=== PATIENT | male | born 1960 | race Caucasian/White ===

== ENCOUNTER 2017-02-24 09:00 | Day surgery (SDC) | payer BC, OTHER ==
[2017-02-24 09:16] LABS: HEMATOCRIT 48.4 % (37.9-51.0); HEMOGLOBIN 16.9 g/dL (13.5-17.0); MEAN CORPUSCULAR HEMOGLOBIN 33.3 pg (27.0-33.4); MEAN CORPUSCULAR VOLUME 95 fl (80-97); PLATELET COUNT 166 10^3/uL (150-450); RED BLOOD COUNT 5.08 10^6/uL (4.35-5.55); RED CELL DISTRIBUTION WIDTH 12.6 % (11.5-14.0); WHITE BLOOD COUNT 4.8 10^3/uL (4.0-10.5)
[2017-02-24 09:47] LABS: ALANINE AMINOTRANSFERASE 38 U/L (21-72); ALBUMIN 4.7 g/dL (3.5-5.0); ALKALINE PHOSPHATASE 115 U/L (38-126); ANION GAP 14 (5-19); ASPARTATE AMINO TRANSFERASE 39 U/L (17-59); BILIRUBIN,DIRECT 0.3 mg/dL (0.0-0.4); BILIRUBIN,TOTAL 1.1 mg/dL (0.2-1.3); BLOOD UREA NITROGEN 15 mg/dL (7-20); CARBON DIOXIDE 22 mmol/L (22-30); CHLORIDE 105 mmol/L (98-107); GLUCOSE 103 mg/dL (75-110); POTASSIUM 4.5 mmol/L (3.6-5.0); SODIUM 140.7 mmol/L (137-145); TOTAL PROTEIN 7.5 g/dL (6.3-8.2)
[2017-02-24] MEDS ORDERED: GLYCOPYRROLATE INJ 0.4 MG/2 ML VIAL ONE (10:14)
[2017-02-24] MEDS ORDERED: NALOXONE HCL INJ/PF 0.4 MG/1 ML SDV ONE (10:14)
[2017-02-24] MEDS ORDERED: ONDANSETRON HCL INJ/PF 4 MG/2 ML SDV ONE (10:14)
[2017-02-24] MEDS ORDERED: FLUMAZENIL INJ 0.5 MG/5 ML VIAL ONE (10:15)
[2017-02-24] MEDS ORDERED: GLUCAGON,HUMAN RECOMB 1 MG INJ ONE (10:15)
[2017-02-24] MEDS ORDERED: EPINEPHRINE INJ 1 MG/10 ML DISP.SYRIN ONE (10:15)
[2017-02-24] MEDS: MIDAZOLAM 2 MG/2 ML INJ ONE ×3 (11:27→11:40)
[2017-02-24] MEDS: FENTANYL CITRATE INJ/PF 100 MCG/2 ML AMPUL ONE ×3 (11:29→11:35)
--- NOTE | 2017-02-24 12:18 | Operative Report ---
Operative Report DATE OF SURGERY: 02/24/17 PREOPERATIVE DIAGNOSIS: Blood per rectum. History of colon polyps POSTOPERATIVE DIAGNOSIS: Diverticulosis of the colon. Internal hemorrhoids. OPERATION: Colonoscopy. Anoscopy. SURGEON: MARCI ODOM ANESTHESIA: Moderate Sedation TISSUE REMOVED OR ALTERED: None COMPLICATIONS: None ESTIMATED BLOOD LOSS: None INTRAOPERATIVE FINDINGS: Multiple diverticuli throughout the colon. 3 column internal hemorrhoids prominent but not prolapsing and no stigmata of recent bleeding. PROCEDURE: Informed consent was obtained. Patient was brought to the endoscopy suite. IV sedation with Versed and fentanyl was administered. Digital rectal exam revealed no palpable perianal masses. Endoscope was passed via the patient's anus it was fed to the cecum. The bowel prep was good. Visualization was good. The cecum appeared normal. The right colon, transverse colon, descending colon, and the sigmoid colon were all normal other than multiple large diverticuli throughout the entire colon. The rectum appeared normal. Anoscopy was performed it demonstrated prominent 3 column internal hemorrhoids but no stigmata recent bleeding. He did not have hemorrhoidal prolapse. Patient stated prior to sedation that he did not wish to undergo hemorrhoidal banding unless it was really severe. With the patient's wishes clearly expressed prior to the procedure, I did not perform hemorrhoidal banding. Patient tolerated procedure well with no apparent complications. I will plan to see him back for follow-up in 1-2 weeks. If he changes his mind about the hemorrhoidal banding, I can do this procedure in the office. I do feel that he does have intermittent bleeding due to the hemorrhoids. Recommend repeat colonoscopy in 5 years in light of his history of colon polyps in the past.
--- NOTE | 2017-02-24 12:20 | PDOC DISCHARGE SUMMARY ---
Discharge Summary (SDC) - Discharge Final Diagnosis: Internal hemorrhoids, diverticulosis of the colon. Personal history of colon polyps in the past. Date of Surgery: 02/24/17 Discharge Date: 02/24/17 Condition: Good Treatment or Instructions: Colonoscopy and anoscopy. May discharge patient home when met discharge criteria. Follow-up with me in 2 weeks. Referrals: RISHI DALEY MD [Primary Care Provider] - Discharge Diet: As Tolerated Discharge Activity: Activity As Tolerated Report the Following to Your Physician Immediately: Increase in Pain, Unusual Bleeding
[2017-02-24 12:58] VITALS: BP 122/77
== END 2017-02-24 13:00 | disposition home or self-care (01) ==
LOC: END 09:00
PROVIDERS: ATTEND Surgery
PROC: 0DJD8ZZ Inspection of Lower Intestinal Tract, Via Natural or Artificial Opening Endoscopic (ICD-10-PCS; principal; 2017-02-24 10:30)
DX: Z12.11 Encounter for screening for malignant neoplasm of colon (principal); K64.8 Other hemorrhoids; K62.5 Hemorrhage of anus and rectum; K57.30 Diverticulosis of large intestine without perforation or abscess without bleeding; Z86.010 Personal history of colon polyps
CPT/HCPCS: 45378; 36415; 85027; 80053; J2250; J3010; 46600; J0171; J1610; J2310; J2405; J3490

== ENCOUNTER 2019-12-15 01:26 | Emergency (ER) | payer BC ==
[2019-12-15 01:53] VITALS: BP 196/94
[2019-12-15] MEDS ORDERED: ACETAMINOPHEN 325 MG TABLET PO ONE (02:47)
== END 2019-12-15 03:15 | disposition left against medical advice (07) ==
LOC: ER 01:26
DX: Z53.21 Procedure and treatment not carried out due to patient leaving prior to being seen by health care provider (principal); H57.11 Ocular pain, right eye